=== PATIENT | female | born 2000 ===

== ENCOUNTER → 2022-08-24 | Outpatient (REF) | payer OTHER ==
[2022-08-24 18:47] LABS: CREATININE, URINE 31.4 MG/DL
[2022-08-24 18:48] LABS: MAU/CREAT RATIO 28.6 MCG/MG (0.0-30.0)
== END ==
LOC: M LAB REF 17:46
PROVIDERS: ATTEND Nurse Practitioner Family
DX: E10.65 Type 1 diabetes mellitus with hyperglycemia (principal)